=== PATIENT | male | born 1945 | race Caucasian/White ===

== ENCOUNTER 2022-01-22 13:13 | Emergency (ER) | payer OTHER ==
[2022-01-22 14:00] LABS: Absolute Lymphocytes (CBC) 0.6 K/uL (0.7-4.9); Hematocrit 31.6 % (39.6-49.0); Lymphocytes % 4.7 % (15.3-44.8); MCV 98.2 fL (80-100); MPV 6.5 fL (7.6-11.3); RBC Red Blood Cell Count 3.21 M/uL (4.33-5.43)
[2022-01-22 14:12] LABS: Potassium 3.9 mmol/L (3.5-5.1)
[2022-01-22 14:21] LABS: Protime INR 0.97
[2022-01-22] MEDS ORDERED: MORPHINE 4 MG/ML SYR ONE (14:22)
[2022-01-22] MEDS ORDERED: ONDANSETRON 4 MG/2 ML VIAL ONE (14:22)
[2022-01-22] MEDS ORDERED: NA CHLORIDE 0.9% 500 ML ONE (14:22)
[2022-01-22] MEDS ORDERED: NA CHLORIDE 0.9% 100 ML ONE (14:23)
[2022-01-22] MEDS ORDERED: PIPERACIL/TAZO 3.375 GM VIAL IV ONE (14:23)
--- NOTE | 2022-01-22 14:40 | RAD REPORT ---
EXAM DESCRIPTION: US - Lower Extremity Artery Uni Ltd - 01/22/2022 2:11 pm CLINICAL HISTORY: Leg pain COMPARISON: None FINDINGS: Color Doppler, grayscale, and spectral analysis was performed. Monophasic waveform noted at the right common femoral artery with peak systolic velocity of 235 cm/se conds. The proximal SFA is patent but with a monophasic waveform. The mid and distal SFA are occluded . The right posterior tibial and dorsalis pedis arteries are monophasic. IMPRESSION: Long segment occlusion involving the mid and distal SFA. The popliteal artery reconstitu reese but with monophasic flow. The posterior tibial and dorsalis pedis arteries also have monophasic f low .
--- NOTE | 2022-01-22 14:47 | EDPHYS ---
Physician Documentation [facility] Name: Ismael Delcid Age: 76 yrs Sex: Male : 1945 Arrival Date: 01/22/2022 Time: 13:15 Bed 13 Private MD: ED Physician Leo Marti HPI: 01/22 13:43 This 76 yrs old Male presents to ER via EMS with complaints of right foot pain. rn 13:43 The patient presents with pain, swelling. The complaints affect the right foot. Onset: rn The symptoms/episode began/occurred 3 week(s) ago. Modifying factors: The symptoms are alleviated by nothing, the symptoms are aggravated by nothing. Associated signs and symptoms: Pertinent positives: rash, swelling, warmth, Pertinent negatives: fever. Severity of symptoms: At their worst the symptoms were moderate, in the emergency department the symptoms are unchanged. The patient has experienced similar episodes in the past. The patient has been recently seen by a physician:. Pt reports recent RLE stent placement with failure, scheduled for bypass next week, family member unwrapped foot today and noticed black toes and foul smell. Pt reports increased pain.. Historical: - Allergies: 13:25 Mevacor; ss - Home Meds: 13:25 Unable to obtain [Active]; ss - PMHx: 13:25 Hypertensive disorder; ss - PSHx: 13:25 Coronary Angioplasty; ss - Immunization history:: Adult Immunizations up to date. - Social history:: Smoking status: Patient denies any tobacco usage or history of. - Family history:: not pertinent. - Hospitalizations: : No recent hospitalization is reported. ROS: 13:43 Constitutional: Negative for fever, chills, and weight loss, Eyes: Negative for injury, rn pain, redness, and discharge, Cardiovascular: Negative for chest pain, palpitations, and edema, Respiratory: Negative for shortness of breath, cough, wheezing, and pleuritic chest pain, Abdomen/GI: Negative for abdominal pain, nausea, vomiting, diarrhea, and constipation, Back: Negative for injury and pain, MS/Extremity: + right foot pain and discoloration Skin: + discoloration of foot Neuro: Negative for headache, weakness, numbness, tingling, and seizure. Exam: 13:43 Constitutional: This is a well developed, well nourished patient who is awake, alert, rn and in no acute distress. Head/Face: Normocephalic, atraumatic. Cardiovascular: Regular rate and rhythm. No pulse deficits. Respiratory: No increased work of breathing, no retractions or nasal flaring. Abdomen/GI: Soft, non-tender Skin: Warm, + wet gangrene right lateral foot with black 3rd/4th/5th toes. MS/ Extremity: No palpable pulse right foot, + strong pulse left foot Neuro: Awake and alert, GCS 15 Vital Signs: 13:21 BP 158 / 76; Pulse 100; Resp 20; Temp 97.9(O); Pulse Ox 98% on R/A; Weight 81.65 kg ss (R); Height 5 ft. 6 in. (167.64 cm); Pain 10/10; 14:48 BP 128 / 71; Pulse 93; Resp 16; Pulse Ox 98% on R/A; Pain 5/10; bm7 15:16 BP 126 / 76; Pulse 88; Resp 16; Pulse Ox 98% on R/A; Pain 5/10; bm7 16:03 BP 121 / 71; Pulse 80; Resp 16; Pulse Ox 99% on R/A; Pain 3/10; bm7 16:16 BP 131 / 71; Pulse 82; Resp 16; Pulse Ox 98% on R/A; bm7 17:27 BP 125 / 63; Pulse 78; Resp 16; Pulse Ox 98% on R/A; Pain 2/10; bm7 13:21 Body Mass Index 29.05 (81.65 kg, 167.64 cm) ss MDM: 13:20 Patient medically screened. rn 14:44 Differential diagnosis: cellulitis, wet gangrene, arterial occlusion. Data reviewed: rn vital signs, nurses notes, lab test result(s), radiologic studies, plain films, ultrasound, and as a result, I will admit patient. Counseling: I had a detailed discussion with the patient and/or guardian regarding: the historical points, exam findings, and any diagnostic results supporting the discharge/admit diagnosis, lab results, radiology results, the need to transfer to another facility, for higher level of care, [facility] does not immediately have the required specialist. Response to treatment: the patient's symptoms have mildly improved after treatment, and as a result, I will admit patient. ED course: Pt with stent/proximal occlusion of arterial flow RLE, with monophasic flow distally, + wet gangrene, abx started, will transfer to [facility] given that is where his surgeon is at.. 15:30 ED course: Spoke with Dr. Fernandez, requests patient be transferred to [facility] and he will consult.. 16:53 ED course: Dr Fernandez unable to get patient into [facility] or [facility], rn went through transfer center and [facility]. He does not want patient transferred elsewhere. Spoke with Patient's family member, Tamiko, who plans to take patient to [facility] herself. Understands risks of taking patient in private vehicle instead of transfer formally, and wants to take patient for continuity of care. Patient agrees. . 01/22 13:22 Order name: CBC with Diff; Complete Time: 17:38 rn 01/22 13:22 Order name: Basic Metabolic Panel; Complete Time: 14:29 01/22 13:22 Order name: Protime (+inr); Complete Time: 14:29 rn 01/22 13:22 Order name: Ptt, Activated; Complete Time: 14:29 01/22 13:22 Order name: Blood Culture Adult (2) 01/22 13:47 Order name: Wound Culture 01/22 13:22 Order name: Lower Extremity Artery Uni Ltd US; Complete Time: 14:47 rn 01/22 13:32 Order name: XRAY Foot RIGHT 3 View; Complete Time: 15:28 01/22 14:48 Order name: SARS RAPID; Complete Time: 17:38 eb 01/22 17:02 Order name: CBC Smear Scan; Complete Time: 17:38 EDMS 01/22 13:22 Order name: IV Start; Complete Time: 13:28 rn Administered Medications: 14:22 Drug: NS 0.9% 500 ml Route: IV; Rate: bolus; Site: left antecubital; bm7 15:14 Follow up: IV Status: Completed infusion; IV Intake: 500ml bm7 14:23 Drug: morphine 4 mg Route: IVP; Infused Over: 4 mins; Site: left antecubital; bm7 15:15 Follow up: Response: Pain is unchanged, physician notified bm7 14:23 Drug: Zofran (Ondansetron) 4 mg Route: IVP; Site: left antecubital; bm7 15:14 Follow up: Response: No adverse reaction bm7 14:34 Drug: Zosyn (piperacillin-tazobactam) 3.375 grams Route: IVPB; Infused Over: 60 mins; bm7 Site: left antecubital; 15:14 Follow up: Response: No adverse reaction; IV Status: Completed infusion bm7 15:15 Drug: vancoMYCIN 1 grams Route: IVPB; Infused Over: 2 hrs; Site: left antecubital; bm7 17:36 Follow up: Response: No adverse reaction; IV Status: Completed infusion bm7 15:23 Drug: morphine 4 mg Route: IVP; Infused Over: 4 mins; Site: right antecubital; bm7 16:04 Follow up: Response: Pain is decreased bm7 17:40 Drug: [place] (HYDROcodone-acetaminophen) 10 mg-325 mg 1 tabs Route: PO; bm7 17:40 Follow up: Response: No adverse reaction bm7 Disposition Summary: 01/22/22 16:52 Discharge Ordered Location: Home rn Problem: new(01/22/22 16:52) rn Symptoms: have improved(01/22/22 16:52) rn Condition: Stable(01/22/22 16:52) rn Diagnosis - 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, right leg(01/22/22 rn 16:52) Followup: rn - With: Private Physician - When: Upon discharge from the Emergency Department - Reason: Further diagnostic work-up, Recheck today's complaints, Continuance of care, Re-evaluation by your physician Discharge Instructions: - Discharge Summary Sheet rn - Gangrene rn Forms: - Medication Reconciliation Form rn - Thank You Letter rn - Antibiotic furnace erector - Prescription Opioid Use rn Signatures: Dispatcher [employer] Leo Shore MD MD rn Smirch, Shelby, RN RN ss McCarthy, Brittany, RN RN bm7 Corrections: (The following items were deleted from the chart) 16:52 14:47 rn rn 16:52 14:47 Other Acute Care Facility rn rn 16:52 14:47 Higher level of care rn rn 16:52 14:47 Stable rn rn 16:52 14:47 an ongoing problem rn rn 16:52 14:47 have improved rn rn 16:52 14:47 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, right leg rn rn
--- NOTE | 2022-01-22 14:47 | ER ---
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 He was supposed to have another bypass don the of next month. Coronavirus screen: At this time, the client does not indicate any symptoms associated with coronavirus-19. Ebola Screen: No symptoms or risks identified at this time. Initial Sepsis Screen: Does the patient meet any 2 criteria? HR > 90 bpm. Does the patient have a suspected source of infection? Yes: Skin breakdown/wound. Risk Assessment: Do you want to hurt yourself or someone else? Patient reports no desire to harm self or others. Onset of symptoms was January 08, 2022. Care prior to arrival: IV initiated. 20 GA, in the left forearm. 13:21 Method Of Arrival: EMS: [facility] ss 13:21 Acuity: BRADLY 2 ss Triage Assessment: 13:25 General: Appears in no apparent distress. uncomfortable, Behavior is calm, cooperative, ss appropriate for age, Smells of foul odor from foot wound . Pain: Complains of pain in right foot. EENT: No deficits noted. No signs and/or symptoms were reported regarding the EENT system. Neuro: No deficits noted. Cardiovascular: Chest pain is denied. Cardiovascular: Pulses are absent in right dorsalis pedis artery are palpable in left dorsalis pedis artery Edema is 3+ to left midcalf, left ankle, right midcalf and right ankle pitting to left ankle and right ankle. Respiratory: No deficits noted. GI: No deficits noted. No signs and/or symptoms were reported involving the gastrointestinal system. : No deficits noted. No signs and/or symptoms were reported regarding the genitourinary system. Derm: Skin is intact, Wound noted right foot Other: necrotic wound to the right outer three toes. Musculoskeletal: Reports weakness in right foot. Historical: - Allergies: 13:25 Mevacor; ss - Home Meds: 13:25 Unable to obtain [Active]; ss - PMHx: 13:25 Hypertensive disorder; ss - PSHx: 13:25 Coronary Angioplasty; ss - Immunization history:: Adult Immunizations up to date. - Social history:: Smoking status: Patient denies any tobacco usage or history of. - Family history:: not pertinent. - Hospitalizations: : No recent hospitalization is reported. Screenin:23 Abuse screen: Denies threats or abuse. Nutritional screening: No deficits noted. bm7 Tuberculosis screening: No symptoms or risk factors identified. Fall Risk None identified. Assessment: 14:23 Reassessment: No changes from previously documented assessment. bm7 15:23 Reassessment: Patient and/or family updated on plan of care and expected duration. Pain bm7 level reassessed. Patient is alert, oriented x 3, equal unlabored respirations, skin warm/dry/pink. patient complains of pain and itching to the right AC IV. IV dc'd will continue to monitor. 16:03 Reassessment: Patient and/or family updated on plan of care and expected duration. Pain bm7 level reassessed. Patient is alert, oriented x 3, equal unlabored respirations, skin warm/dry/pink. Vital Signs: 13:21 BP 158 / 76; Pulse 100; Resp 20; Temp 97.9(O); Pulse Ox 98% on R/A; Weight 81.65 kg ss (R); Height 5 ft. 6 in. (167.64 cm); Pain 10/10; 14:48 BP 128 / 71; Pulse 93; Resp 16; Pulse Ox 98% on R/A; Pain 5/10; bm7 15:16 BP 126 / 76; Pulse 88; Resp 16; Pulse Ox 98% on R/A; Pain 5/10; bm7 16:03 BP 121 / 71; Pulse 80; Resp 16; Pulse Ox 99% on R/A; Pain 3/10; bm7 16:16 BP 131 / 71; Pulse 82; Resp 16; Pulse Ox 98% on R/A; bm7 17:27 BP 125 / 63; Pulse 78; Resp 16; Pulse Ox 98% on R/A; Pain 2/10; bm7 13:21 Body Mass Index 29.05 (81.65 kg, 167.64 cm) ED Course: 13:15 Patient arrived in ED. eb 13:20 Leo Marti MD is Attending Physician. rn 13:21 Roxanna Guerra RN is Primary Nurse. ss 13:25 Triage completed. ss 13:25 Arm band placed on right wrist. ss 13:36 daughter Tamiko called would like to be called when everything is back/ informed her eb that most likely we would attempt to send her father back to his vascular surgeons in [facility]/ She would like to be notified if that happens as well. Her cell [phone]. 13:40 First set of blood cultures drawn by me, Second set of blood cultures drawn by lab bm7 staff. Wound culture swab sent to lab. Maintain EMS IV. Dressing intact. Good blood return noted. Site clean \T\ dry. Gauge \T\ site: 20g LAC. 14:13 Lower Extremity Artery Uni Ltd US In Process Unspecified. EDMS 14:23 Patient has correct armband on for positive identification. Placed in gown. Bed in low bm7 position. Call light in reach. Side rails up X2. Client placed on continuous cardiac and pulse oximetry monitoring. NIBP monitoring applied. core drill operator on. Warm blanket given. 14:23 Initial lab(s) drawn, by me, sent to lab. Inserted saline lock: 20 gauge in right bm7 antecubital area, using aseptic technique. Blood collected. 14:47 initiated a transfer with Dom from the the [facility] transfer center at the request of the eb patient. 14:57 per Dom [facility] will have to decline the patient in transfer due to the facility eb being at capacity. / informed patient to see if he was okay going to [facility] patient refuses states he will only go to LT[facility] or [facility] / provider notified. 15:04 initiated a transfer with Masha from the [facility]. eb 15:08 XRAY Foot RIGHT 3 View In Process Unspecified. EDMS 15:09 connected Masha and the boiler house mechanic from [facility] with Dr. Marti for eb patient consultation/ the [facility] will deny for Capacity at this time/ The electrician substation supervisor from [facility] is going to reach out to patient's vascular Surgeon Dr. Nehemias Fernandez and see what he wants/ they are limited on vascular beds currently. 15:24 IV discontinued, intact, bleeding controlled, Pressure dressing applied, 20g LAC dcd. bm7 15:26 connected Tisha boiler house mechanic from [facility] with Dr. Membreno / she gave eb him Dr. Fernandez's cell phone for him to call for patient consultation. 15:[address] Fernandez patient's vascular surgeon with Dr. Marti for patient consultation. Dr. Fernandez is requesting us to attempt to transfer patient to [facility] again and to tell them he will take the patient. 15:35 called the [facility] transfer/ left message with [place] to give to Dom to re initiate transfer. eb 17:27 Assisted with urinal. bm7 17:29 per Dom from the [facility] transfer per the AO there is still no possibility for a bed at this time/. 17:35 No provider procedures requiring assistance completed. bm7 Administered Medications: 14:22 Drug: NS 0.9% 500 ml Route: IV; Rate: bolus; Site: left antecubital; bm7 15:14 Follow up: IV Status: Completed infusion; IV Intake: 500ml bm7 14:23 Drug: morphine 4 mg Route: IVP; Infused Over: 4 mins; Site: left antecubital; bm7 15:15 Follow up: Response: Pain is unchanged, physician notified bm7 14:23 Drug: Zofran (Ondansetron) 4 mg Route: IVP; Site: left antecubital; bm7 15:14 Follow up: Response: No adverse reaction bm7 14:34 Drug: Zosyn (piperacillin-tazobactam) 3.375 grams Route: IVPB; Infused Over: 60 mins; bm7 Site: left antecubital; 15:14 Follow up: Response: No adverse reaction; IV Status: Completed infusion bm7 15:15 Drug: vancoMYCIN 1 grams Route: IVPB; Infused Over: 2 hrs; Site: left antecubital; bm7 17:36 Follow up: Response: No adverse reaction; IV Status: Completed infusion bm7 15:23 Drug: morphine 4 mg Route: IVP; Infused Over: 4 mins; Site: right antecubital; bm7 16:04 Follow up: Response: Pain is decreased bm7 17:40 Drug: [place] (HYDROcodone-acetaminophen) 10 mg-325 mg 1 tabs Route: PO; bm7 17:40 Follow up: Response: No adverse reaction bm7 Medication: 14:23 VIS not applicable for this client. bm7 Intake: 15:14 IV: 500ml; Total: 500ml. bm7 Outcome: 14:47 ER care complete, transfer ordered by MD. rn 16:52 Discharge ordered by MD. rn 17:35 Discharged to home via wheelchair, with family. bm7 17:35 Condition: stable 17:35 Discharge instructions given to patient, family, Instructed on discharge instructions, follow up and referral plans. Demonstrated understanding of instructions, follow-up care. 17:52 Patient left the ED. bm7 Signatures: Dispatcher [employer] EDLeo Cox MD MD rn Smirch, Shelby, RN RN ss Botello, Elizabeth eb McCarthy, Brittany, RN RN bm7
[2022-01-22] MEDS ORDERED: VANCOMYCIN 1 GM/VIAL ONE (15:04)
[2022-01-22] MEDS ORDERED: NA CHLORIDE 0.9% 0 ML ONE (15:05)
--- NOTE | 2022-01-22 15:25 | RAD REPORT ---
EXAM DESCRIPTION: RAD - Foot Right 3 View - 01/22/2022 3:06 pm CLINICAL HISTORY: eval for osteo, has wet gangrene COMPARISON: No comparisonsNo comparisons FINDINGS/IMPRESSION: No acute fracture. No malalignment. Calcaneal spurring. Soft tissue wounds at t he tips of the third, fourth, and fifth toes. No radiographic evidence of underlying osteomyelitis. N ote that MRI is more sensitive in the acute phase.
[2022-01-22 15:38] LABS: SARS-CoV-2 Antigen Rapid Res Negative (Negative)
[2022-01-22 17:01] LABS: Anisocytosis 3+; Blood Morphology Comment NOTED (NOT SEEN)
[2022-01-22 17:02] LABS: Platelet Estimate ADEQ; White Blood Cell Scan OK (OK)
[2022-01-22] MEDS ORDERED: HYDROCODONE/APAP 10/325 TAB ONE (17:48)
[2022-01-22 19:48] VITALS: TEMP 97.9
[2022-01-22 19:58] VITALS: O2SAT 98
[2022-01-22 20:00] VITALS: BP 125/63
== END 2022-01-22 17:52 | disposition home or self-care (01) ==
LOC: ER 13:13
DX: I70.261 Atherosclerosis of native arteries of extremities with gangrene, right leg (principal); I10 Essential (primary) hypertension; Z88.8 Allergy status to other drugs, medicaments and biological substances; Z20.822 Contact with and (suspected) exposure to COVID-19
CPT/HCPCS: 87040 ×2; 87070; 85025; 80048; 36415; 87205 ×2; 85610; 85730; 73630; 93926; 99284; 87811; J2543; J3370; J7040; J2405; 87077; 87186; J7050

== ENCOUNTER 2024-08-05 07:04 | Emergency (ER) | payer OTHER ==
[2024-08-05] MEDS ORDERED: PANTOPRAZOLE 40 MG INJ ONE ×2 (07:18→16:36)
[2024-08-05] MEDS ORDERED: NA CHLORIDE 0.9% 250 ML ONE ×2 (07:18→16:36)
[2024-08-05] MEDS ORDERED: ONDANSETRON 4 MG/2 ML VIAL ONE ×2 (07:18→16:41)
[2024-08-05 07:46] LABS: Absolute Basophils 0.1 K/uL (0-0.5); Absolute Eosinophils 0.5 K/uL (0-0.5); Absolute Lymphocytes (CBC) 1.2 K/uL (0.7-4.9); Absolute Monocytes 1.1 K/uL (0.1-1.3); Absolute Neutrophil 10.4 K/uL (1.8-8.0); Basophils % 0.8 % (0-1.3); Eosinophils % 3.9 % (0-4.4); Hematocrit 31.1 % (39.6-49.0); Hemoglobin 10.6 g/dL (13.6-17.9); Lymphocytes % 9.3 % (15.3-44.8); MCH 29.2 pg (27.0-35.0); MCHC 33.9 g/dL (32.0-36.0); MCV 86.2 fL (80-100); MPV 7.4 fL (7.6-11.3); Platelets 521 thou/uL (152-406); RBC Red Blood Cell Count 3.61 M/uL (4.33-5.43); Red Cell Distribution Width 15.8 % (12.1-15.2)
[2024-08-05 08:15] LABS: PT Prothrombin Time 12.9 SECONDS (10-13.0); PTT, Activated Partial Thromb 27.6 SECONDS (27.2-37.4); Protime INR 1.14
[2024-08-05 08:31] LABS: ALT/SGPT 18 U/L (16-61); Albumin 1.9 g/dL (3.4-5.0); Albumin/Globulin Ratio 0.6 (1.1-1.8); Alkaline Phosphatase 83 U/L (45-117); Anion Gap 7.9 mEq/L (5.0-15.0); BUN Blood Urea Nitrogen 11 mg/dL (7-18); Bicarbonate 27 mEq/L (21-32); Bilirubin Total 0.6 mg/dL (0.2-1.0); Globulin 3.4 g/dL (2.3-3.5); Glomerular Filtration Rate 87 ml/min (=/>90); Glucose Level 115 mg/dL (74-106); Lipase 35 U/L (13-75); Potassium 3.9 mEq/L (3.5-5.1); Protein, Total 5.3 g/dL (6.4-8.2); Sodium Level 140 mEq/L (136-145); Troponin High Sensitivity 9.5 pg/mL (<58.9)
[2024-08-05 08:34] LABS: AST/SGOT < 10 U/L (15-37)
--- NOTE | 2024-08-05 10:04 | RAD REPORT ---
EXAMINATION: CT Abdomen Pelvis W Contrast CLINICAL INDICATION: Male, 79 years old. hematemesis TECHNIQUE: CT abdomen and pelvis was performed, after the administration of IV contrast, [facility] Axial, sagittal and coronal reconstructions were obtained. One or more of the following dose reduction techniques were used: Automated exposure control, adjustment of the mA and k V according to patient size, and iterative reconstruction. Unless otherwise specified, incidental findings do not require dedicated imaging follow-up. COMPARISON: No prior exam. FINDINGS: LOWER CHEST: The visualized lung bases are clear. LIVER: Normal in size and contour. No focal lesion. BILIARY SYSTEM: Small gallstone near the neck. SPLEEN: Normal size. No focal lesion. PANCREAS: No mass, ductal dilation, or audi-pancreatic fluid. ADRENALS: Right adrenal nodule with hyperdense foci which may represent calcifications are patchy enh ancement measuring 3.4 x 2.8 cm. Small right adrenal 1.2 cm nodule KIDNEYS: Normal size. Duplicated morphology bilaterally. Atrophic changes along the left lower renal moiety. Multiple cortical cysts, largest on the left measuring 2.8 cm, and on the right measuring 1.3 cm. Many of these are subcentimeter in size and difficult to characterize. No hydronephrosis. URINARY BLADDER: Unremarkable. GASTROINTESTINAL TRACT: 4.1 x 3.1 cm mass at the level of the gastroesophageal junction anteriorly wi th extraluminal infiltration, with nodular wall thickening of the distal esophagus just proximal to the mass. Lobulated hyperdense foci within the mass, could relate to contrast extravasation. No evide nce of free air, significant intra-abdominal free fluid, bowel obstruction or abscess. APPENDIX: Normal appendix. LYMPH NODES: Enlarged epigastric lymph nodes largest at the midline measuring 1.3 cm in short axis. MUSCULOSKELETAL: No acute or suspicious osseous abnormality. ADDITIONAL FINDINGS: Mild fusiform aneurysmal dilation of the infrarenal abdominal aorta, with sac me asuring 3.4 cm in greatest diameter. Advanced calcific and noncalcific atherosclerotic plaque with degrees of luminal narrowing along the proximal common iliac vessels, and moderate narrowing at the S MA origin. Surgical clips in the deep pelvis may relate to prior prostatectomy.. IMPRESSION: A 4.1 cm mass at the gastroesophageal junction anteriorly with extraluminal infiltration, and nodular wall thickening extending along the distal esophagus, concerning for malignancy. Lobulated foci of hyperenhancement within the mass, could relate to contrast pooling. Epigastric enlarged lymph nodes, suggesting metastatic adenopathy. Bilateral adrenal nodules largest measuring 3.4 cm on the left, could represent metastatic disease as well. Cholelithiasis. Mild fusiform aneurysmal dilation of the infrarenal abdominal aorta.
--- NOTE | 2024-08-05 11:45 | EDPHYS ---
Physician Documentation [facility] Name: Ismael Delicd Age: 79 yrs Sex: Male : 1945 Arrival Date: 08/05/2024 Time: 07:04 Bed 3 Private MD: ED Physician Leo Marti HPI: 08/05 07:32 This 79 yrs old Male presents to ER via EMS with complaints of Vomiting blood. rn 07:32 The patient presents to the emergency department vomiting blood, a small amount, bright rn red. Onset: The symptoms/episode began/occurred 3 day(s) ago. Abdominal pain: none is appreciated. Modifying factors: The symptoms are alleviated by nothing, the symptoms are aggravated by nothing. Severity of symptoms: At their worst the symptoms were moderate in the emergency department the symptoms are unchanged. The patient has not experienced similar symptoms in the past. The patient has not recently seen a physician. Patient reports started vomiting 3 days ago, first emesis did not contain blood. Subsequent emesis had bright red blood. Stopped for 2 days and then now 6 episodes of bright red blood since last night. No fever or chills. No abdominal pain. No history of gastric ulcers. No known liver problems. Does take aspirin and Brilinta for cardiac stent.. Historical: - Allergies: 07:31 Mevacor; ap3 - PMHx: 07:22 Hypertensive disorder; Hypertensive disorder; Hypothyroidism; ap3 - PSHx: 07:22 Coronary Angioplasty; cardiac stent; leg stent; ap3 - Immunization history:: Client reports receiving the 2nd dose of the Covid vaccine. - Infectious Disease History:: Denies. - Social history:: Smoking status: Patient reports the use of cigarette tobacco products, cigars. - Family history:: not pertinent. - Hospitalizations: : No recent hospitalization is reported. ROS: 07:32 Constitutional: Negative for fever, chills, and weight loss, Cardiovascular: Negative rn for chest pain, palpitations, and edema, Respiratory: Negative for shortness of breath, cough, wheezing, and pleuritic chest pain, Abdomen/GI: Negative for abdominal pain, diarrhea, and constipation, MS/Extremity: Negative for injury and deformity, Skin: Negative for injury, rash, and discoloration, Neuro: Negative for headache, numbness, tingling, and seizure, Exam: 07:32 Constitutional: This is a well developed, well nourished patient who is awake, alert rn Head/Face: Normocephalic, atraumatic. Cardiovascular: Regular rate and rhythm. No pulse deficits. Respiratory: No increased work of breathing, no retractions or nasal flaring. Abdomen/GI: Soft, non-tender MS/ Extremity: Pulses equal, no cyanosis. Neuro: Awake and alert, GCS 15 17:46 ECG was reviewed by the Attending Physician. rn Vital Signs: 07:17 BP 128 / 91; Pulse 76; Resp 18; Temp 96.6(A); Pulse Ox 100% on R/A; Weight 70.76 kg; ap3 Height 5 ft. 6 in. ; Pain 0/10; 07:33 BP 119 / 54; Pulse 67; Pulse Ox 100% on R/A; ap3 07:59 BP 140 / 62; Pulse 67; Resp 19; Pulse Ox 100% on R/A; ap3 08:30 BP 118 / 62; Pulse 66; Resp 19; Pulse Ox 96% ; ap3 09:29 BP 121 / 50; Pulse 65; Resp 18; Pulse Ox 98% on R/A; ap3 09:57 BP 117 / 52; Pulse 62; Resp 19; Pulse Ox 98% on R/A; ap3 11:34 BP 119 / 99; Pulse 69; Resp 18; Pulse Ox 98% on R/A; ap3 12:00 BP 114 / 59; Pulse 79; Resp 17; Pulse Ox 99% ; me1 13:00 BP 91 / 52; Pulse 89; Resp 18; Pulse Ox 97% ; me1 13:30 BP 87 / 45; Pulse 80; Resp 18; Pulse Ox 100% ; me1 13:30 BP 78 / 57; Pulse 80; Resp 18; Pulse Ox 100% ; me1 14:00 BP 100 / 57; Pulse 82; Resp 18; Pulse Ox 100% ; me1 14:20 BP 82 / 56; Pulse 92; Resp 18; Pulse Ox 92% ; me1 15:02 BP 79 / 40; Pulse 80; me1 15:05 BP 108 / 54; Pulse 73; Resp 24; Pulse Ox 100% on R/A; ld1 15:14 BP 94 / 53; Pulse 80; Resp 23; Pulse Ox 96% on R/A; ld1 15:19 BP 104 / 57; Pulse 77; Resp 23; Pulse Ox 100% ; me1 15:21 BP 96 / 49; Pulse 79; Resp 22; ld1 15:31 BP 76 / 55; Pulse 98; Resp 26; Pulse Ox 97% on R/A; ld1 15:37 BP 106 / 87; Pulse 81; Resp 28; Pulse Ox 100% on R/A; ld1 16:04 BP 101 / 66; Pulse 85; Resp 22; Pulse Ox 100% on 3 lpm NC; ld1 16:12 BP 159 / 63; Pulse 72; Resp 18; Pulse Ox 100% on 3 lpm NC; ld1 16:26 BP 152 / 76; Pulse 63; Resp 19; Pulse Ox 100% on 3 lpm NC; ld1 07:17 Body Mass Index 25.18 (70.76 kg, 167.64 cm) ap3 07:17 Pain Scale: Adult ap3 13:[address] Marti of low bp me1 13:30 MAP 65 me1 14:[address] Marti me1 Procedures: 15:04 Central Line: the site was prepped with Betadine, in sterile fashion, a triple lumen rn catheter was inserted, in the right femoral vein, in 1 attempts. placement was verified, by blood return, With ultrasound, the site was dressed with Tegaderm, using sterile technique, the patient tolerated the procedure, well, Placed using ultrasound guidance given history of aortofemoral bypass. MDM: 07:12 Medical Screening Exam initiated rn 10:57 ED course: Call Dr. Naranjo twice, no answer. Attempting to call through his clinic.. rn 11:14 ED course: Discussed case with Dr. Naranjo, request transfer due to mass/possible cancer rn with active bleeding. 11:42 Differential diagnosis: gastritis, varices, Malignancy. Data reviewed: vital signs, rn nurses notes, lab test result(s), radiologic studies, CT scan, and as a result, I will admit patient. Consideration of Admission/Observation Patient was admitted/placed on observation. Escalation of care including admission/observation considered. Counseling: I had a detailed discussion with the patient and/or guardian regarding the historical points, exam findings, and any diagnostic results supporting the discharge/admit diagnosis, lab results, radiology results, the need to transfer to another facility. 14:56 ED course: Called to bedside, patient had 2 more episodes of hematemesis now after rn hours of nothing. Patient dropped blood pressure. Decision made to place central line for Levophed drip. Will contact [facility] and notify of decompensation and requiring ICU bed now.. 15:34 ED course: Patient accepted for transfer to [facility], they were notified of rn decompensation and initiation of pressor. Patient's current blood pressure is 106/87 with a heart rate of 84. Ordered 2 units emergency release blood given 3 point drop in hemoglobin.. 08/05 07:13 Order name: CBC with Diff; Complete Time: 08:08 08/05 07:13 Order name: CMP; Complete Time: 09:36 08/05 07:13 Order name: Lipase; Complete Time: 09:36 08/05 07:13 Order name: Protime (+inr); Complete Time: 09:36 08/05 07:13 Order name: Ptt, Activated; Complete Time: 09:36 08/05 07:13 Order name: Lactate w/ 2H reflex if indic.; Complete Time: 09:36 08/05 07:13 Order name: Troponin High Sensitivity; Complete Time: 09:36 08/05 08:24 Order name: Ghost Lactate-NO COLLECT Timer; Complete Time: 10:26 [facility] 08/05 10:56 Order name: Lactate Sepsis 2 HR Follow-up; Complete Time: 10:57 [facility] 08/05 14:26 Order name: Hemoglobin; Complete Time: 15:31 08/05 15:32 Order name: Type And Screen 08/05 15:41 Order name: RBC Leukored Pheresis [facility] 08/05 15:41 Order name: RBC Leukoreduced (Pheresis 2) [facility] 08/05 16:16 Order name: ABO/RH no charge [facility] 08/05 07:13 Order name: CT Abd/Pelvis - IV Contrast Only; Complete Time: 10:26 08/05 07:13 Order name: EKG; Complete Time: 07:14 rn 08/05 07:13 Order name: IV Saline Lock; Complete Time: 07:14 rn 08/05 07:13 Order name: Labs collected and sent; Complete Time: 07:14 rn 08/05 07:13 Order name: EKG - Nurse/Tech; Complete Time: 07:14 rn 08/05 07:49 Order name: Labs - recollect needed: recollect blue and green and collect a weller top; bd Complete Time: 07:59 08/05 15:47 Order name: Transfuse; Complete Time: 16:14 rn EC:46 Rate is 68 beats/min. Rhythm is regular. Left axis deviation noted. QRS is positive in rn lead I and negative in lead aVF. QRS interval is normal. QT interval is normal. No Q waves. T waves are Normal. No ST changes noted. Clinical impression: NSR w/ Non-specific ST/T Changes. Interpreted by me. Reviewed by me. Administered Medications: 07:28 Drug: Ondansetron IVP 4 mg IVP once; over 2 minutes Route: IVP; Site: left forearm; ld1 07:28 Drug: Pantoprazole IVP 40 mg IVP once Route: IVP; Site: left forearm; ld1 07:28 Drug: Pantoprazole IV 8 mg/hr IV at 25 ml/hr continuous; (Standard dilution is 80 mg in ld1 250 mL NS) Route: IV; Rate: 25 ml/hr; Site: left forearm; 13:21 Drug: NS 0.9% IV 500 ml IV at bolus once; to be given as a bolus over 30 minutes Route: me1 IV; Rate: bolus; Site: left antecubital; 13:54 Follow up: Response: No adverse reaction; IV Status: Completed infusion; IV Intake: me1 500ml 13:54 Drug: NS 0.9% IV 1000 ml IV at 1000 ml once; to be given as a bolus over 60 minutes me1 Route: IV; Rate: 1000 ml; Site: right antecubital; 15:03 Follow up: Response: No adverse reaction; IV Status: Completed infusion; IV Intake: me1 1000ml 14:45 Drug: Norepinephrine IV 0.1 mcg/kg/min IV at calculated rate Per protocol; (Standard me1 concentration 4 mg / 250 mL D5W); Recommended max rate 3 mcg/kg/min; Titrate 0.05 mcg/kg/min as often as every 5 minutes to achieve goal (see titration policy); Goal parameter MAP greater than 65 mmHg. Route: IV; Rate: calculated rate; Site: right antecubital; 14:53 Follow up: Rate change 0.15 mcg/kg/min me1 15:02 Follow up: Rate change 0.2 mcg/kg/min me1 15:14 Follow up: Rate change 0.25 mcg/kg/min me1 15:19 Follow up: Rate change 0.3 mcg/kg/min me1 15:21 Follow up: Rate change 0.35 mcg/kg/min ld1 15:23 Follow up: Rate change 0.4 mcg/kg/min ld1 15:31 Follow up: Rate change 0.8 mcg/kg/min ld1 15:30 Drug: Promethazine IVP 12.5 mg IVP once Route: IVP; Site: right femoral; me1 16:14 Follow up: Response: No adverse reaction; Nausea is decreased me1 16:06 Drug: fentaNYL (PF) IVP 50 mcg IVP once Route: IVP; Site: right femoral; ld1 16:42 Follow up: Response: No adverse reaction; Pain is decreased ld1 16:42 Drug: Ondansetron IVP 4 mg IVP once; over 2 minutes Route: IVP; Site: right antecubital;ld1 16:42 Follow up: Response: No adverse reaction ld1 Disposition Summary: 08/05/24 11:45 Transfer Ordered Notes: Reason: Higher level of care rn Condition: Stable(08/05/24 11:45) rn Problem: new(08/05/24 11:45) rn Symptoms: have improved(08/05/24 11:45) per diem rn Location: [facility](08/05/24 13:10) rn Accepting Physician: (08/05/24 16:45) ld1 Diagnosis - Hematemesis(08/05/24 11:45) rn - GI Bleed/ Gastrointestinal hemorrhage, unspecified rn Forms: - Medication Reconciliation Form rn - SBAR form internal control specialist time excluding procedures: 11:44 Critical care time: Bedside Care: 30 minutes, Consultation: 5 minutes. Total time: 35 rn minutes 14:56 Critical care time: Bedside Care: 60 minutes, Consultation: 15 minutes. Total time: 75 rn minutes Signatures: Dispatcher [employer] EDMS Renay Molina Roman, MD MD rn Prokisch, Amanda, RN RN ap3 Kate Burton RN RN ld1 Sade Booth RN RN me1 Corrections: (The following items were deleted from the chart) 11:44 11:44 Home rn rn 11:44 11:44 new rn rn 11:44 11:44 have improved rn rn 11:44 11:44 Stable rn rn 11:44 11:44 Hematemesis rn rn 11:57 11:45 rn rn 11:57 11:45 [facility] rn rn 13:10 11:57 rn rn 13:10 11:57 [facility] rn rn 14:26 14:26 Hemoglobin+H.LAB.BRZ ordered. EDMS EDMS 16:45 13:10 Dr. allen ld1
--- NOTE | 2024-08-05 11:45 | ER ---
Nurse's Notes [facility] Name: Ismael Delcid Age: 79 yrs Sex: Male : 1945 Arrival Date: 08/05/2024 Time: 07:04 Bed 3 Private MD: Diagnosis: Hematemesis;GI Bleed/ Gastrointestinal hemorrhage, unspecified Presentation: 08/05 07:17 Chief complaint: Patient states: he has been vomiting blood "for a couple of days". ap3 Patient denies any abdominal pain at this time. Coronavirus screen: At this time, the client does not indicate any symptoms associated with coronavirus-19. Ebola Screen: No symptoms or risks identified at this time. Initial Sepsis Screen: Does the patient meet any 2 criteria? Temp <36.0*C (96.8*F)) or > 38.3*C (100.9*F). Does the patient have a suspected source of infection? No. Patient's initial sepsis screen is negative. Risk Assessment: Do you want to hurt yourself or someone else? Patient reports no desire to harm self or others. Onset of symptoms was August 02, 2024. 07:17 Method Of Arrival: EMS: [facility] ap3 07:17 Acuity: BRADLY 2 ap3 07:30 Care prior to arrival: Medication(s) given: Normal saline infusion, 1000 mL, zofran 4 ap3 mg, IV initiated. 20 GA, in the left forearm. Triage Assessment: 07:28 General: Appears in no apparent distress. Behavior is calm, cooperative, appropriate ap3 for age. Pain: Denies pain. Neuro: Level of Consciousness is awake, alert, obeys commands, Oriented to person, place, time, situation, Appropriate for age. Cardiovascular: Patient's skin is warm and dry. Respiratory: Airway is patent Respiratory effort is even, unlabored, Respiratory pattern is regular, symmetrical. GI: Pt is actively vomiting bright red blood, Reports vomiting. Historical: - Allergies: 07:31 Mevacor; ap3 - PMHx: 07:22 Hypertensive disorder; Hypertensive disorder; Hypothyroidism; ap3 - PSHx: 07:22 Coronary Angioplasty; cardiac stent; leg stent; ap3 - Immunization history:: Client reports receiving the 2nd dose of the Covid vaccine. - Infectious Disease History:: Denies. - Social history:: Smoking status: Patient reports the use of cigarette tobacco products, cigars. - Family history:: not pertinent. - Hospitalizations: : No recent hospitalization is reported. Screenin:29 Abuse screen: Denies threats or abuse. Nutritional screening: No deficits noted. ap3 Tuberculosis screening: No symptoms or risk factors identified. 07:29 [facility] ED Fall Risk Assessment (Adult) History of falling in the last 3 months, ap3 including since admission No falls in past 3 months (0 pts) Confusion or Disorientation No (0 pts) Intoxicated or Sedated No (0 pts) Impaired Gait No (0 pts) Mobility Assist Device Used No (0 pt) Altered Elimination No (0 pt) Score/Fall Risk Level 3 or more points = High Risk Oriented to surroundings, Maintained a safe environment, Educated pt \\T\\ family on fall prevention, incl call for assistance when getting out of bed, Assessed \\T\\ reinforced patient's understanding of fall precautions, Provided non-skid footwear, Hourly rounding (assess needs \\T\\ fall precautionary measures) done, Used ambulatory aids as needed (educated on \\T\\ assisted with), Apply high fall risk patient identification: yellow non skid footwear/ fall signage, Offered frequent toileting (1:1 observation), Remained with patient while ambulating. Assessment: 10:22 Reassessment: Patient and/or family updated on plan of care and expected duration. Pain ap3 level reassessed. Patient is alert, oriented x 3, equal unlabored respirations, skin warm/dry/pink. Patient states feeling better. Patient states symptoms have improved. General: Appears in no apparent distress. Behavior is calm, cooperative, appropriate for age. 11:30 Reassessment: Patient and/or family updated on plan of care and expected duration. Pain ld1 level reassessed. Patient is alert, oriented x 3, equal unlabored respirations, skin warm/dry/pink. Patient states symptoms have not improved. 12:15 Reassessment: Patient and/or family updated on plan of care and expected duration. Pain ld1 level reassessed. Patient is alert, oriented x 3, equal unlabored respirations, skin warm/dry/pink. Patient states symptoms have not improved. 13:30 Reassessment: Patient and/or family updated on plan of care and expected duration. Pain ld1 level reassessed. Patient is alert, oriented x 3, equal unlabored respirations, skin warm/dry/pink. 14:30 Reassessment: Patient and/or family updated on plan of care and expected duration. Pain ld1 level reassessed. Patient is alert, oriented x 3, equal unlabored respirations, skin warm/dry/pink. Patient states symptoms have not improved. GI: Reports nausea, vomiting. Derm: Skin is pale. 15:15 Reassessment: Pt C/O pain to back, displaying signs of anxiety. Wanting to get up and ld1 walk. Notified ERP of patient complaints. 15:31 Reassessment: Pt vomiting blood at this time. Notified ERP. See MAR for orders. ld1 15:55 Reassessment: First unit of Emergency blood administered at this time, checked by ld1 Roxanna Villarreal, rn relief charge nurse. ERP at bedside. Bear hugger applied to patient. Temp 95. See blood transfusion flowsheet. 16:05 Reassessment: Pt c/o pain to back - ERP at bedside. See MAR for orders. ld1 16:13 Reassessment: Report to CECE Miller in [facility]. md1 16:18 Reassessment: Second unit of blood being administered at this time. CECE Mcknight in room, ld1 administering blood. 16:36 Reassessment: Life flight at bedside. ld1 Vital Signs: 07:17 BP 128 / 91; Pulse 76; Resp 18; Temp 96.6(A); Pulse Ox 100% on R/A; Weight 70.76 kg; ap3 Height 5 ft. 6 in. ; Pain 0/10; 07:33 BP 119 / 54; Pulse 67; Pulse Ox 100% on R/A; ap3 07:59 BP 140 / 62; Pulse 67; Resp 19; Pulse Ox 100% on R/A; ap3 08:30 BP 118 / 62; Pulse 66; Resp 19; Pulse Ox 96% ; ap3 09:29 BP 121 / 50; Pulse 65; Resp 18; Pulse Ox 98% on R/A; ap3 09:57 BP 117 / 52; Pulse 62; Resp 19; Pulse Ox 98% on R/A; ap3 11:34 BP 119 / 99; Pulse 69; Resp 18; Pulse Ox 98% on R/A; ap3 12:00 BP 114 / 59; Pulse 79; Resp 17; Pulse Ox 99% ; me1 13:00 BP 91 / 52; Pulse 89; Resp 18; Pulse Ox 97% ; me1 13:30 BP 87 / 45; Pulse 80; Resp 18; Pulse Ox 100% ; me1 13:30 BP 78 / 57; Pulse 80; Resp 18; Pulse Ox 100% ; me1 14:00 BP 100 / 57; Pulse 82; Resp 18; Pulse Ox 100% ; me1 14:20 BP 82 / 56; Pulse 92; Resp 18; Pulse Ox 92% ; me1 15:02 BP 79 / 40; Pulse 80; me1 15:05 BP 108 / 54; Pulse 73; Resp 24; Pulse Ox 100% on R/A; ld1 15:14 BP 94 / 53; Pulse 80; Resp 23; Pulse Ox 96% on R/A; ld1 15:19 BP 104 / 57; Pulse 77; Resp 23; Pulse Ox 100% ; me1 15:21 BP 96 / 49; Pulse 79; Resp 22; ld1 15:31 BP 76 / 55; Pulse 98; Resp 26; Pulse Ox 97% on R/A; ld1 15:37 BP 106 / 87; Pulse 81; Resp 28; Pulse Ox 100% on R/A; ld1 16:04 BP 101 / 66; Pulse 85; Resp 22; Pulse Ox 100% on 3 lpm NC; ld1 16:12 BP 159 / 63; Pulse 72; Resp 18; Pulse Ox 100% on 3 lpm NC; ld1 16:26 BP 152 / 76; Pulse 63; Resp 19; Pulse Ox 100% on 3 lpm NC; ld1 07:17 Body Mass Index 25.18 (70.76 kg, 167.64 cm) ap3 07:17 Pain Scale: Adult ap3 13:[address] Marti of low bp me1 13:30 MAP 65 me1 14:[address] Marti me1 ED Course: 07:09 Patient arrived in ED. cp4 07:12 Leo Marti MD is Attending Physician. rn 07:17 Jenae Quinteros RN is Primary Nurse. ap3 07:17 EKG done, by ED staff, reviewed by Leo Marti MD. ap3 07:17 Patient has correct armband on for positive identification. Placed in gown. Bed in low ap3 position. Call light in reach. Side rails up X2. Client placed on continuous cardiac and pulse oximetry monitoring. NIBP monitoring applied. monitor worker on. Pulse ox on. NIBP on. 07:22 Triage completed. ap3 07:29 Arm band placed on right wrist. ap3 08:54 CT Abd/Pelvis - IV Contrast Only In Process Unspecified. EDMS 08:58 CT completed. Patient tolerated procedure well. Patient moved back from ME. 2 12:42 initiated transfer to [facility],faxed chart to transfer center as requested by transfer center. 13:13 Sade Booth, CECE is Primary Nurse. me1 14:50 Assisted provider with central line placement. Set up central line tray. Triple lumen ld1 line placed in right femoral. Line placed by Leo Marti MD Placement verified by blood return, Dressed with Tegaderm, Blood was collected. Patient tolerated well. Before procedure, did Practitioner(s) obtain informed consent? Yes. Patient \\T\\ family education about procedure, CLABSI prevention and S/S of infection? Yes. Time-out/Briefing performed prior to start of procedure? Yes. Was handwashing/sanitizing done immediately prior to procedure? Yes. Was patient positioned to in a way to prevent air embolism? Yes. Was procedure site sterilized? Yes, with chlorhexidine. Was the site allowed to dry? Yes. Was local anesthetic and/or sedation utilized? No. During the procedure, did the Practitioner(s) maintain a sterile field? Yes. Were unused ports clamped during insertion? Yes. Was a 2nd qualified MD obtained after 3 unsuccessful insertion attempts? No. Was blood aspirated from each lumen? Yes. After the procedure, did the Practitioner(s) clean the site and apply a sterile dressing? Yes. 15:06 Maintain EMS IV. Dressing intact. Good blood return noted. Site clean \\T\\ dry. Gauge \\T\\ ld 1 site: 20G RAC. 16:13 Patient transferred, IV remains in place. me1 Administered Medications: 07:28 Drug: Ondansetron IVP 4 mg IVP once; over 2 minutes Route: IVP; Site: left forearm; ld1 07:28 Drug: Pantoprazole IVP 40 mg IVP once Route: IVP; Site: left forearm; ld1 07:28 Drug: Pantoprazole IV 8 mg/hr IV at 25 ml/hr continuous; (Standard dilution is 80 mg in ld1 250 mL NS) Route: IV; Rate: 25 ml/hr; Site: left forearm; 13:21 Drug: NS 0.9% IV 500 ml IV at bolus once; to be given as a bolus over 30 minutes Route: me1 IV; Rate: bolus; Site: left antecubital; 13:54 Follow up: Response: No adverse reaction; IV Status: Completed infusion; IV Intake: me1 500ml 13:54 Drug: NS 0.9% IV 1000 ml IV at 1000 ml once; to be given as a bolus over 60 minutes me1 Route: IV; Rate: 1000 ml; Site: right antecubital; 15:03 Follow up: Response: No adverse reaction; IV Status: Completed infusion; IV Intake: me1 1000ml 14:45 Drug: Norepinephrine IV 0.1 mcg/kg/min IV at calculated rate Per protocol; (Standard me1 concentration 4 mg / 250 mL D5W); Recommended max rate 3 mcg/kg/min; Titrate 0.05 mcg/kg/min as often as every 5 minutes to achieve goal (see titration policy); Goal parameter MAP greater than 65 mmHg. Route: IV; Rate: calculated rate; Site: right antecubital; 14:53 Follow up: Rate change 0.15 mcg/kg/min me1 15:02 Follow up: Rate change 0.2 mcg/kg/min me1 15:14 Follow up: Rate change 0.25 mcg/kg/min me1 15:19 Follow up: Rate change 0.3 mcg/kg/min me1 15:21 Follow up: Rate change 0.35 mcg/kg/min ld1 15:23 Follow up: Rate change 0.4 mcg/kg/min ld1 15:31 Follow up: Rate change 0.8 mcg/kg/min ld1 15:30 Drug: Promethazine IVP 12.5 mg IVP once Route: IVP; Site: right femoral; me1 16:14 Follow up: Response: No adverse reaction; Nausea is decreased me1 16:06 Drug: fentaNYL (PF) IVP 50 mcg IVP once Route: IVP; Site: right femoral; ld1 16:42 Follow up: Response: No adverse reaction; Pain is decreased ld1 16:42 Drug: Ondansetron IVP 4 mg IVP once; over 2 minutes Route: IVP; Site: right antecubital;ld1 16:42 Follow up: Response: No adverse reaction ld1 Intake: 13:54 IV: 500ml; Total: 500ml. me1 15:03 IV: 1000ml; Total: 1500ml. me1 Outcome: 11:44 Discharge ordered by MD. rn 11:45 ER care complete, transfer ordered by MD. rn 16:45 Patient left the ED. ld1 Signatures: Dispatcher [employer] EDRenay Mendoza Roman, MD MD rn McGuire, Victoria 2 Jenae Quinteros RN RN 3 Kate Burton RN RN ld1 Sade Booth RN RN md1 Rena Chou cp4 Corrections: (The following items were deleted from the chart) 13:57 13:30 BP 87 / 45; Pulse 80bpm; Resp 18bpm; Pulse Ox 100%; me1 me1 15:19 15:14 Rate change 0.25 mcg/kg/min me1 me1 15:35 15:31 Reassessment: ld1 me1 16:21 15:53 Accessed triple lumen central line to right groin by Dr Marti me1 ld1
[2024-08-05] MEDS ORDERED: NA CHLORIDE 0.9% 500 ML ONE ×2 (13:18→15:44)
[2024-08-05] MEDS ORDERED: NA CHLORIDE 0.9% 1,000 ML ONE (13:52)
[2024-08-05] MEDS ORDERED: NOREPINEPHRINE BITARTRATE/D5W 4 MG/250 ML BAG IV ONE ×2 (14:27→16:34)
[2024-08-05] MEDS ORDERED: PROMETHAZINE INJ 25 MG/ML AMP ONE (15:28)
[2024-08-05] MEDS ORDERED: FENTANYL CITR 100 MCG/2 ML ONE (16:00)
[2024-08-05 17:12] VITALS: TEMP 96.6
[2024-08-05 17:34] VITALS: O2SAT 100
[2024-08-05 17:37] VITALS: BP 152/76
--- NOTE | 2024-08-08 14:54 | EKG ---
Test Date: 2024-08-05 Test Time: 07:12:39 Chrome Worker: ALP MEASUREMENT RESULTS: Intervals: Rate: 68 WV: 152 QRSD: 72 QT: 404 QTc: 429 Hertel: P: 45 WV: 152 QRS: -49 T: 66 INTERPRETIVE STATEMENTS: Normal sinus rhythm Left axis deviation Nonspecific T wave abnormality Abnormal ECG Compared to ECG 02/26/1992 05:50:00 Left-axis deviation now present T-wave abnormality now present Left anterior fascicular block no longer present Myocardial infarct finding no longer present Electronically Signed On 08-08-24 14:44:18 CDT by Rufino Casanova
== END 2024-08-05 16:45 | disposition short-term general hospital (02) ==
LOC: ER 07:04
PROC: 30233N1 Transfusion of Nonautologous Red Blood Cells into Peripheral Vein, Percutaneous Approach (ICD-10-PCS; principal; 2024-08-05)
DX: K92.0 Hematemesis (principal); I10 Essential (primary) hypertension; Z72.0 Tobacco use; Z98.61 Coronary angioplasty status; Z95.818 Presence of other cardiac implants and grafts
CPT/HCPCS: 93005; 85025; 36415; 86900; 86850; 85610; 86901; 83605 ×2; 85730; 86920 ×2; 85018; 84484; 83690; 80053; 74177; 99285; 36556; 36430; Q9967; J2550; J2470 ×2; J3010; J2405 ×2; P9016 ×2; J7050 ×3; J7040; J7030